=== PATIENT | female | born 1955 | race Caucasian/White ===

== ENCOUNTER → 2017-12-09 | Outpatient (CLI) | payer OTHER | END | disposition home or self-care (01) | LOC: KCIC 10:50 | DX: Z12.31 Encounter for screening mammogram for malignant neoplasm of breast (principal); N63.20 Unspecified lump in the left breast, unspecified quadrant; M76.61 Achilles tendinitis, right leg; M79.671 Pain in right foot | CPT/HCPCS: 73650; 77067 ==

== ENCOUNTER → 2017-12-15 | Outpatient (CLI) | payer OTHER | END | disposition home or self-care (01) | LOC: KCIC US 13:25 | DX: N63.20 Unspecified lump in the left breast, unspecified quadrant (principal) | CPT/HCPCS: 76641 ==

== ENCOUNTER → 2019-12-07 | Outpatient (CLI) | payer MEDICARE, OTHER ==
--- NOTE | 2019-12-07 12:51 | KCIC ---
INDICATION: Osteoporosis screening. History of fracture with postmenopausal evaluation. COMPARISON: None. TECHNIQUE: Bone densitometry was performed through the lumbar spine and left proximal femur. FINDINGS: Lumbar Spine: L1-4 BMD: 0.88 T-Score: -1.5 Femoral : BMD: 0.89 T-Score: -0.4 IMPRESSION: 1. Lumbar spine falls within the osteopenic range. 2. Femoral neck falls within the normal range. Electronically signed by: Fahad Segal MD (12/07/2019 12:48 PM) [facility] [place]
== END ==
LOC: KCIC DEXA 12:15
PROVIDERS: ATTEND Family Medicine
DX: Z13.820 Encounter for screening for osteoporosis (principal); M85.88 Other specified disorders of bone density and structure, other site; Z78.0 Asymptomatic menopausal state
CPT/HCPCS: 77080